=== PATIENT | female | born 1960 ===

== ENCOUNTER → 2023-05-18 16:47 | Outpatient (REF) | payer BC, SELFPAY | LOC: RAD 16:47 | PROVIDERS: ATTENDING PHYSICIAN Internal Medicine Cardiovascular Disease; FAMILY PHYSICIAN Family Medicine | DX: N83.202 Unspecified ovarian cyst, left side (principal) | CPT/HCPCS: 76856 ==

== ENCOUNTER → 2024-05-25 13:36 | Outpatient (REF) | payer BC, SELFPAY | LOC: RAD 13:36 | PROVIDERS: ATTENDING PHYSICIAN Internal Medicine Cardiovascular Disease; FAMILY PHYSICIAN Family Medicine | DX: Z96.651 Presence of right artificial knee joint (principal); Z87.891 Personal history of nicotine dependence; Z98.890 Other specified postprocedural states; I48.0 Paroxysmal atrial fibrillation | CPT/HCPCS: 71275; Q9967 ==